=== PATIENT | male | born 1995 | race Caucasian/White ===

== ENCOUNTER 2019-10-21 00:03 | Emergency (ER) | payer BC, OTHER ==
[~2019-10-21] VITALS: Ht 182.9 cm; Wt 108.9 kg
[2019-10-21 00:05] VITALS: BP 120/80
--- NOTE | 2019-10-21 00:08 | NUR ---
TO LOBBY A/W BED AMBULATORY
--- NOTE | 2019-10-21 02:27 | NUR ---
PT TAKEN TO ER BED 02
--- NOTE | 2019-10-21 02:40 | NUR ---
24 Y/O MALE PRESENTS WITH PENILE PAIN S/P INTERCOURSE LAST NIGHT 0. PT IS UNCIRCUMSIZED AND REPORTS HE RIPPED PART OF HIS FORESKIN AT THE TIP OF HIS PENIS. PT REPORTS IT BLED FOR A FEW MINUTES BUT IS NOT ACTIVELY BLEEDING. REPORTS PAIN 3/10. DENIES ANY SOB/CHEST PAIN. LUNG SOUNDS CLEAR IN BILAT LOBES. NO DISTRESS NOTED AT THIS TIME. CAP REFILL <3. NO PMH NKA
[2019-10-21] MEDS ORDERED: BACITRACIN OINT 500 UNITS/GM PKT TP ONE ×2 (02:50)
[2019-10-21 03:15] VITALS: BP 122/78
--- NOTE | 2019-10-21 03:15 | NUR ---
Patient discharged with v/s stable. Written and verbal after care instructions given and explained. Patient verbalized understanding. Ambulatory with steady gait. All questions addressed prior to discharge. Advised to follow up with PMD.
== END 2019-10-21 03:15 | disposition home or self-care (01) ==
LOC: MED 00:03
DX: S31.21XA Laceration without foreign body of penis, initial encounter (principal); X58.XXXA Exposure to other specified factors, initial encounter; Y93.89 Activity, other specified; Y92.89 Other specified places as the place of occurrence of the external cause; Y99.8 Other external cause status
CPT/HCPCS: 99283